=== PATIENT | female | born 1970 | race Caucasian/White ===

== ENCOUNTER → 2017-03-05 | Day surgery (SDC) | payer OTHER ==
[2017-02-15 12:00] VITALS: Ht 170.2 cm; Wt 93.2 kg
[~2017-03-05] VITALS: Ht 170.2 cm; Wt 93.2 kg
[~2017-03-05] MED LIST: ATROPINE SULFATE 0.1 MG/ML 5ML SYR IV PRN; BND25 PO; BUSP15TA70 PO; CEFAZOLIN 2000 MG/60 ML D5W IV SCH; CETI10TA84 PO; CYAN10005 PO; DEXAMETHASONE SOD INJ 4 MG/ML VIAL ONE; EpHEDrine SULFATE INJ 50 MG/ML AMP IV PRN; EpINEphrine INJ 1MG/ML AMP 1 MG/ML AMP ONE; FENTANYL CITRATE INJ 50 MCG/1 ML 2 ML VIAL IV PRN; FENTANYL CITRATE INJ 50 MCG/1 ML 2 ML VIAL ONE; FLUMAZENIL 0.1 MG/1 ML 10 ML VIAL IV PRN; HYDROCODONE/ACETAMOPHEN 5/325MG TAB PO PRN; HYDROmorphone INJ 2 MG/ML SYR/VIAL IV PRN; LABETALOL HCL IV 5 MG/ML 20ML IV PRN; LACTATED RINGER'S 1000ML 1,000 ML IV SCH; LIDOCAINE HCL 2% 2 ML VIAL (20MG/ML) ONE; LORA-741 PO; MAGN1TAB41 PO; MEPERIDINE HCL 25 MG/ML CARP IV PRN; MULT-506 PO; NALOXONE HCL 0.4 MG/1 ML VIAL/CARP IV PRN; ONDANSETRON INJ 2 MG/ML 2 ML VIAL IV PRN; ONDANSETRON INJ 2 MG/ML 2 ML VIAL ONE; PHENYLEPHRINE 100MCG/ML 5ML SYR IV PRN; PROPOFOL IV EMULSION 10 MG/ML 20 ML VIAL IV ONE; SUCCINYLCHOLINE CHLORIDE 20 MG/ML 10 ML VIAL IV ONE; [UNRECOGNIZED DRUG - OTHER] PO
--- NOTE | 2017-03-05 12:47 | History and Physical: Surg Cnt ---
History & Physical Date Mar 05, 2017. Chief Complaint RIGHT TONSIL LESION, HOARSENESS History of Present Illness The patient is a 46 year old female with complaints of RIGHT TONSIL LESION AND HOARSENESS AND SOB. Past Medical/Surgical History PMH: TOBACCO ABUSE PSH: S/P EX LAP Additional History Hepatic Disease: No Endocrine Disorder: No Kidney Disease: No Hypertension: No Heart Disease: No Bleeding Tendencies: No Infectious Diseases: No Allergies Coded Allergies: Adhesives (Verified Allergy, Unknown, HIVES, RASH, 03/05/17) Latex (Verified Allergy, Unknown, HIVES, RASH, 03/05/17) Home Medications Scheduled Buspirone Hcl (Buspar), 15 MG PO TID Cetirizine (Zyrtec), 10 MG PO QAM Cyanocobalamin (Vitamin B-12), 1,000 MCG PO QAM Magnesium Oxide (Magnesium), 1 TAB PO QAM Multivitamin (Multivitamin), 1 TAB PO QAM [Astrogalus], 500 MG PO QAM Scheduled PRN Diphenhydramine Hcl (Benadryl), 25 MG PO HS PRN for ALLERGIES Lorazepam (Ativan), 0.5 MG PO Q6H PRN for Anxiety Physical Examination Skin: warm/dry, no rash Eyes: normal inspection, EOMI, sclerae normal ENT: + pertinent finding (+ HOARSENESS, 7MM PAPILLOMATOUS LESION R TONSIL, 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
--- NOTE | 2017-03-05 13:23 | [facility] Operative Report ---
Operative Report Operative Date Mar 05, 2017. Pre-Operative Diagnosis RIGHT TONSIL LESION, HOARSENESS, BILATERAL TRUE VOCAL FOLD POLYPOID DEGENERATION Post-Operative Diagnosis SAME PLUS LEFT TRUE VOCAL FOLD LEUKOPLAKIA Procedure(s) Performed EXCISIONAL BIOPSY OF RIGHT POSTERIOR TONSILLAR PILLAR LESION; DIRECT MICROLARYNGOSCOPY WITH LEFT TRUE VOCAL FOLD BIOPSY AND RIGHT TRUE VOCAL FOLD TIN'S EDEMA DECOMPRESSION Surgeon MISTY Type Mapper Surgeon(s) NONE Estimated Blood Loss 1ML Findings 1. 7MM PAPILLOMATOUS LESION RIGHT POSTERIOR TONSILLAR PILLAR 2. L TVF LEUKOPLAKIA IN MIDDLE 1/3 OF TVF 3. MODERATE R TVF TIN'S EDEMA Specimens 1. RIGHT POSTERIOR TONSILLAR PILLAR LESION 2. LEFT TRUE VOCAL FOLD LEUKOPLAKIA I attest to the content of the Intraoperative Record and any orders documented therein. Any exceptions are noted below.
--- NOTE | 2017-03-05 13:25 | Discharge Instructions ---
Discharge Instructions Date of Service Mar 05, 2017. Admission Reason for Admission: Lesion Of Tonsil, Vocal Cord Polyps, Chronic Hoars Discharge Discharge Diagnosis / Problem: SAME Discharge Goals Goal(s): Therapeutic intervention Activity Recommendations Activity Limitations: as noted below VOICE REST FOR 48-72HRS . Current Hospital Diet Patient's current hospital diet: Discharge Diet Recommended Diet: Regular Diet Procedures Procedures Performed: EXCISIONAL BIOPSY OF RIGHT POSTERIOR TONSILLAR PILLAR LESION; DIRECT MICROLARYNGOSCOPY WITH LEFT TRUE VOCAL FOLD BIOPSY AND RIGHT TRUE VOCAL FOLD TIN'S EDEMA DECOMPRESSION Pending Studies Studies pending at discharge: no Medical Emergencies . Who to Call and When: Medical Emergencies: If at any time you feel your situation is an emergency, please call 911 immediately. . Non-Emergent Contact Non-Emergency issues call your: Surgeon . . "Provider Documentation" section prepared by Jorge Waite. . VTE Core Measure Inpt VTE Proph given/why not?: SCD's
--- NOTE | 2017-03-05 14:11 | Anesthesiology Progress Note ---
Anesthesia Post Op Note Date & Time Mar 05, 2017 at 14:10 Vital Signs Pain Intensity: 0 Vital Signs Past 12 Hours Date Time Temp Pulse Resp B/P (MAP) Pulse Ox O2 Delivery O2 Flow Rate FiO2 03/05/17 14:08 78 13 03/05/17 14:08 78 13 100 03/05/17 14:03 89 20 03/05/17 14:03 90 20 99 03/05/17 14:02 111/74 03/05/17 13:58 94 20 96 03/05/17 13:58 77 20 03/05/17 13:57 73 21 03/05/17 13:57 75 21 97 03/05/17 13:57 36.3 75 16 111/74 98 Room Air 03/05/17 13:52 67 18 98 03/05/17 13:52 67 18 03/05/17 13:51 104/74 03/05/17 13:47 72 18 03/05/17 13:47 72 18 109/69 97 03/05/17 13:42 75 17 96 03/05/17 13:42 72 17 03/05/17 13:41 126/74 03/05/17 13:38 130/47 03/05/17 13:37 77 16 99 03/05/17 13:37 78 16 03/05/17 13:33 132/84 03/05/17 13:32 77 98 03/05/17 13:32 77 03/05/17 13:32 35.8 76 16 132/84 98 Humidified Oxygen 6 Diffusion Mask 03/05/17 10:38 36.5 77 18 116/60 (78) 96 Room Air Notes Mental Status: alert / awake / arousable, participated in evaluation Pt Amnestic to Procedure: Yes Nausea / Vomiting: adequately controlled Pain: adequately controlled Airway Patency, RR, SpO2: stable & adequate BP & HR: stable & adequate Hydration State: stable & adequate Anesthetic Complications: no major complications apparent
[2017-03-05 14:18] VITALS: BP 128/83; PULSE 71; TEMP 36.6; O2SAT 98
--- NOTE | 2017-03-05 14:34 | OPERATIVE REPORT ---
DATE OF OPERATION: 03/05/2017 PREOPERATIVE DIAGNOSIS: 1. Right tonsillar lesion. 2. Hoarseness. POSTOPERATIVE DIAGNOSIS: 1. Right tonsillar lesion. 2. Hoarseness. 3. Left true vocal fold leukoplakia. 4. Right polypoid degeneration with Kimmy's edema. PROCEDURE: 1. Excisional biopsy of right posterior tonsillar pillar lesion 2. direct microlaryngoscopy with biopsy of left true vocal fold and decompression of right true vocal fold Kimmy's edema SPECIMENS: 1. Right posterior tonsillar pillar lesion. 2. Left true vocal fold leukoplakia. SURGEON: Dr. Jorge Waite. COMPLICATIONS: None. INDICATIONS FOR THE PROCEDURE: The patient is a 46-year-old female smoker with a history of hoarseness for the past several months, who presented to my office and was found to have a papillomatous lesion involving the right tonsillar region. In addition, in my office, she was found to have severe left greater than right polypoid degeneration of her vocal folds with Kimmy edema and ball valving of the left true vocal fold upon inspiration. Interestingly, the patient states that her voice is somewhat improved today compared to when I saw her approximately 6 weeks ago. She presents for the above-mentioned procedures on an outpatient elective basis. DESCRIPTION OF PROCEDURE: After informed consent had been obtained from the patient, the patient was wheeled to the operating room and placed on the operating table in the supine position. Monitors were placed and after induction of general endotracheal anesthesia, the table was turned 90 degrees and antibiotic ointment was applied to the lips. A mouth gag was carefully inserted, opened, and stabilized on a roll of towels. The palate was inspected and this was found to be normal except for a papillomatous lesion involving the posterior tonsillar pillar on the right side. This was grasped with a DeBakey forceps and Bovie electrocautery was used to remove the papillomatous lesion which had a narrow stalk. The specimen was sent off for permanent pathological assessment. Because there was only a small excisional site with the Bovie, sutures were not placed. The mouth gag was then removed. The patient was then placed in the sniffing position. A tooth guard was placed over the maxillary dentition. The operating microscope was inserted and used to inspect the oral cavity, oropharynx, hypopharynx and larynx. Once the larynx was visualized a Lewy pabon was placed and the [facility] was [facility]. Using a 0 degree bare telescope photodocumentation of the patient's true vocal folds was undertaken revealing leukoplakia involving the middle third of the left true vocal fold and moderate Kimmy's edema involving the right true vocal fold. This laryngoscopic appearance was much different than in the office where the left vocal fold was more swollen than the right and the leukoplakia may represent where a polyp auto amputated versus other pathology. Due to the patient's smoking history, it was decided to biopsy the left true vocal fold and remove all of the left true vocal fold leukoplakia which involved the majority of the middle third of the left true vocal fold. Care was taken to preserve as much mucosa as possible. A sickle knife was then used to incise the right true vocal fold longitudinally in the middle aspect and a micro suction was used to suction out significant amount of Kimmy's edema from the true vocal fold from Kimmy's space. This nicely decompressed the right true vocal fold. A topical epinephrine pledget was then placed at the left true vocal fold biopsy site and the right true vocal fold decompression site. The laryngoscope was then carefully removed. This marked the end of the case. The patient tolerated the procedure well. There were no complications. The patient was extubated and transferred to recovery room in stable condition. I attest to the content of the Intraoperative Record and any orders documented therein. Any exceptions are noted below. TIANA
== END | disposition home or self-care (01) ==
LOC: X.SURG 10:16
DX: D10.5 Benign neoplasm of other parts of oropharynx (principal); J38.1 Polyp of vocal cord and larynx; R49.0 Dysphonia; J38.3 Other diseases of vocal cords; Z87.891 Personal history of nicotine dependence; R06.02 Shortness of breath; J45.909 Unspecified asthma, uncomplicated; F41.9 Anxiety disorder, unspecified; K21.9 Gastro-esophageal reflux disease without esophagitis; E66.9 Obesity, unspecified